=== PATIENT | female | born 1975 | race Caucasian/White ===

== ENCOUNTER 2016-12-17 13:39 | Emergency (ER) | payer OTHER ==
[~2016-12-17] VITALS: Ht 152.4 cm; Wt 52.2 kg
[2016-12-17] MEDS ORDERED: PANTOPRAZOLE SODIUM 40 MG VIAL IV ONE (14:15)
[2016-12-17] MEDS ORDERED: ONDANSETRON 4 MG/2 ML VIAL IV ONE (14:15)
[2016-12-17] MEDS ORDERED: IV NORMAL SALINE 1000 ML BAG IV ONE ×3 (14:15→17:15)
[2016-12-17] MEDS ORDERED: ONDANSETRON 4 MG/2 ML VIAL ONE (14:29)
[2016-12-17] MEDS ORDERED: PANTOPRAZOLE SODIUM 40 MG VIAL ONE (14:30)
[2016-12-17 14:32] LABS: CALCIUM 8.6 mg/dL (8.5-10.1); CREATININE 0.9 mg/dL (0.6-1.3); POTASSIUM 3.5 mmol/L (3.5-5.1)
[2016-12-17 14:46] LABS: ALBUMIN 4.3 g/dL (3.4-5.0); BILIRUBIN,DIRECT 0.1 mg/dL (0.0-0.2); BILIRUBIN,TOTAL 0.5 mg/dL (0.2-1.0); TOTAL PROTEIN, SERUM 8.3 g/dL (6.4-8.2)
[2016-12-17 14:48] LABS: BASOPHILS # (AUTO) 0.1 K/uL (0.0-0.2); BASOPHILS % (AUTO) 0.6 % (0.0-2.0); EOSINOPHILS # (AUTO) 0.1 K/uL (0.0-0.7); EOSINOPHILS % (AUTO) 0.7 % (0.0-7.0); HEMOGLOBIN 15.6 g/dL (12.0-16.0); LYMPHOCYTES # (AUTO) 0.8 K/uL (0.8-4.8); LYMPHOCYTES % (AUTO) 3.8 % (20.5-51.5); MEAN CORPUSCULAR HEMOGLOBIN 30.4 uug (27.0-31.0); MEAN CORPUSCULAR HGB CONC 34 g/dL (32.0-37.0); MEAN CORPUSCULAR VOLUME 89.4 fL (81.0-99.0); MONOCYTES # (AUTO) 0.4 K/uL (0.1-1.30); NEUTROPHILS # (AUTO) 18.4 K/uL (1.8-8.9); NEUTROPHILS % (AUTO) 92.9 % (38.5-71.5); PLATELET COUNT (AUTO) 251 K/uL (150-450); RED BLOOD CELL COUNT(AUTO) 5.14 MIL/uL (4.20-5.40); RED CELL DISTRIBUTION WIDTH 13.4 % (11.5-14.5); WHITE BLOOD COUNT (AUTO) 19.8 K/uL (4.0-11.2)
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
[2016-12-17 15:46] LABS: BAND % (MANUAL) 4 % (0-10); LYMPHOCYTES % (MANUAL) 3 % (20-40); MONOCYTES % (MANUAL) 3 % (2-10); NEUTROPHILS % (MANUAL) 90 % (42-75)
--- NOTE | 2016-12-17 16:23 | NUR ---
PT REQUEST TO HAVE ORTHOSTATIC VS LATER. PT STATES, "I DON'T THINK I CAN STAND UP RIGHT NOW." MD CARPENTER
[2016-12-17] MEDS ORDERED: LOPERAMIDE HCL 2 MG CAPSULE PO ONE (18:45)
[2016-12-17] MEDS ORDERED: LOPERAMIDE HCL 2 MG CAPSULE ONE (18:52)
--- NOTE | 2016-12-17 19:04 | NUR ---
Patient does not wish to proceed with medical care recommended by Dr. FLOYD. Patient given information related to possible complications, up to and including , which could occur as a result of leaving the hospital at this time. Patient verbalizes understanding of risks involved due to leaving against medical advice. Patient has signed AMA form. Patient and family at bedside verbalized understanding of instructions. No further questions or concerns noted prior on leaving the ED.
[2016-12-17 19:06] VITALS: BP 98/54
== END 2016-12-17 19:07 | disposition left against medical advice (07) ==
LOC: ER 13:45
DX: E86.0 Dehydration (principal); R55 Syncope and collapse; R11.10 Vomiting, unspecified; R19.7 Diarrhea, unspecified
CPT/HCPCS: 36415; 80048; 80076; 83605; 84703; 85025; 87040 ×2; 93005; 96361; 96374; 96375; 99285; A4663; C9113; J2405; J7030 ×3